=== PATIENT | male | born 1955 | race Caucasian/White ===

== ENCOUNTER → 2017-05-15 | Emergency (ER) | payer BC, OTHER ==
[~2017-05-15] VITALS: Ht 185.4 cm; Wt 77.1 kg
[~2017-05-15] MED LIST: CYCLOBENZAPRINE10 MG PO; METHYLPREDNISOLO4 M1 PO; VENTOLIN HFA18 GM INH; ZITHROMAX250 MG PO
--- NOTE | 2017-05-15 14:03 | EKG ---
[facility] [address] [facility] [place] [address] Signed Sinus rhythm with premature atrial complexes Left axis deviation Abnormal ECG No previous ECGs available Confirmed by MONSERRAT TRISTAN MD ([id number]) on 05/15/2017 2:03:16 PM Electronically Signed By: MONSERRAT TRISTAN MD 05/15/17 1403 PATIENT NAME: ASHA JOHNS Electrocardiogram DATE OF : 57 PHYSICIAN: MONSERRAT TRISTAN MD REPORT #: [id number] REPORT IS CONFIDENTIAL AND NOT TO BE RELEASED WITHOUT AUTHORIZATION
== END | disposition home or self-care (01) ==
LOC: ED 09:07
DX: J40 Bronchitis, not specified as acute or chronic (principal); Z87.891 Personal history of nicotine dependence
CPT/HCPCS: 71020; 80048; 84484; 85025; 93005; 93010; 94640; 96374; 99284; J2930

== ENCOUNTER 2017-11-02 21:59 | Emergency (ER) | payer BC, OTHER ==
[~2017-11-02] VITALS: Ht 185.4 cm; Wt 63.5 kg
[2017-11-02] MEDS ORDERED: OXYCODONE HCL5 MG PO (22:36)
[2017-11-02] MEDS ORDERED: ALPRAZOLAM0.25 MG PO (22:37)
[2017-11-02] MEDS ORDERED: LISINOPRIL5 MG PO (22:38)
[2017-11-02] MEDS ORDERED: LEVOTHYROXINE100 MCG PO (22:39)
[2017-11-02] MEDS ORDERED: GABAPENTIN300 MG PO (22:39)
[2017-11-02] MEDS ORDERED: IPRAT-ALBUT 0.5-3 ML INH (22:40)
[2017-11-02] MEDS ORDERED: PAROXETINE HCL10 MG PO (22:59)
--- NOTE | 2017-11-03 15:50 | EKG ---
[facility] [address] [facility] [place] [address] Signed Sinus tachycardia Biatrial enlargement Left axis deviation Anteroseptal infarct , age undetermined Abnormal ECG When compared with ECG of 15-MAY-2017 09:35, premature atrial complexes are no longer present Anteroseptal infarct is now present Inverted T waves have replaced nonspecific T wave abnormality in Lateral leads Confirmed by MONSERRAT TRISTAN MD ([id number]) on 11/03/2017 3:50:03 PM Electronically Signed By: MONSERRAT TRISTAN MD 11/03/17 1550 PATIENT NAME: ASHA JOHNS Electrocardiogram DATE OF : 57 PHYSICIAN: MONSERRAT TRISTAN MD REPORT #: [id number] REPORT IS CONFIDENTIAL AND NOT TO BE RELEASED WITHOUT AUTHORIZATION
== END 2017-11-03 02:56 | disposition home or self-care (01) ==
LOC: ED 21:59
DX: R41.0 Disorientation, unspecified (principal); Z87.891 Personal history of nicotine dependence; Z79.899 Other long term (current) drug therapy
CPT/HCPCS: 70450; 80053; 81001; 85025; 85610; 85730; 93005; 93010; 99284

== ENCOUNTER 2017-11-29 14:23 | Inpatient (IN) | payer BC, OTHER ==
[~2017-11-29] VITALS: Ht 185.4 cm; Wt 60.0 kg
[~2017-11-29 14:23] MED LIST changes: +ALPRAZOLAM0.25 MG PO; +GABAPENTIN300 MG PO; +IPRAT-ALBUT 0.5-3 ML INH; +LEVOTHYROXINE100 MCG PO; +LISINOPRIL5 MG PO; +OXYCODONE HCL5 MG PO; +PAROXETINE HCL10 MG PO
[2017-11-29] MEDS ORDERED: AMOX TR-K CLV1 EAC1 PO (15:01)
[2017-11-29] MEDS ORDERED: ASPIRIN EC81 MG PO (15:02)
[2017-11-29] MEDS ORDERED: DIAZEPAM5 MG PO (15:02)
[2017-11-29] MEDS ORDERED: BENZONATATE100 MG PO (15:03)
--- NOTE | 2017-11-29 19:32 | NUR ---
PATIENT ARRIVES TO ROOM 127 AT 1840 ON STRETCHER. PT IS IN A HALO CAST SINCE 2016. PT ADMITTED FOR PNEUMONIA. PT VOIDS UPON ARRIVAL AFTER AMBULATING INTO BATHROOM, AND VOID 200 ML CONCENTRATED URINE. BP UPON ARRIVAL 81/44. PT HUNGRY, AND DINNER PROVIDED WHICH WAS PUREED FIRST. HEART RATE ELEVATED AROUND 100-110s. PT IS CURRENTLY 99% ON ROOM AIR. 1 L LR BOLUS TO BE GIVEN AND STARTED. D5LR AT 125 ML/HR. PT TO RECEIVE IV VANCO. REPORT GIVEN TO NOC SHIFT.
--- NOTE | 2017-11-29 20:00 | NUR ---
RECEIVED REPORT AT 1900. FOUND PT HAD JUST ARRIVED ON FLOOR. PT HAD NO COCNERNS AT THAT TIME.
--- NOTE | 2017-11-29 22:00 | NUR ---
PT HAS BEEN RESTIN IN BED. PAIN SEEMS WELL CONTROLLED WITH AVAILABLE PRN OXY. UPPER LOBES ARE CLEAR BUT DIMINISHED, LOWER LOBES HAVE CRACKLES. O2 SATS ARE WDL OVERALL. PT DENIES SOB SO FAR. WILL CONTINUE TO MONITOR FOR FLUID OVERLOAD SINCE OUTPUT IS NOT IN BALANCE WITH INPUT AT ALL. PT OVERALL IS WEAK BUT ABLE TO STAND ON HIS OWN. PT IS AAO X4.
--- NOTE | 2017-11-29 22:30 | NUR ---
PT HAS BEEN LYING IN BED DOZING OFF AND ON, COOPERATIVE. STARTING TO GET SOMEWHAT RESTLESS, STILL CONFUSED STATES HE IS LOOKING FOR HIS GUN THAT WAS STOLEN OUT OF HIS TRUCK, TREMORS ARE MUCH LESS SEVERE THAN THEY HAD BEEN LAST NIGHT. GOT PT UP TO ASSESS HIS ABILITY TO STAND, PT WEAK AND SLIGHTLY SHAKY BUT ABLE TO STAND USING WALKER AND STAND BY ASSIST, OUT TO AMBULATE IN STALEY OF CCU X2 WITH ASSIST OF TWO RN'S. BACK TO ROOM TO SIT UP IN CHAIR WITH CHAIR ALARM ON, DRINKING JUICE AND IN VIEW OF NURSES STATION.
--- NOTE | 2017-11-30 02:08 | NUR ---
PT WAS SLEEPING, DESAT TO 81%, INFORMED PT THAT IT WOULD HELP IF HE SLEPT SITTING UP, PT NOW ON 2L O2 NC. PT IS RESTING AGAIN.
--- NOTE | 2017-11-30 03:04 | NUR ---
MD TRISTAN WAS CALLED AT 0245 DUE TO LOW URINE OUTPUT. I RECEIVED INSTRUCTIONS TO TAKE V/S AT 0300, AND IF SBP WAS <90 AND MAP <65 TO GIVE A 500ML LR BOLUS. V/S AT 0300 WERE SBP 92, MAP 66, HR 92. THEREFORE NO LR 500ML BOLUS WAS GIVEN. WILL CONTINUE TO MONITOR.
--- NOTE | 2017-11-30 04:15 | NUR ---
PT IS SLEEPING.
--- NOTE | 2017-11-30 05:52 | NUR ---
PT HAS BEEN SOMEWHAT HYPOTENSIVE ALL SHIFT. URINE OUTPUT HAS BEEN MARGINAL SO FAR. AT START OF SHIFT PT HR WAS 100-110, AT THIS TIME HR IS IN THE 90'S. MD TRISTAN WAS CALLED AT 0245 DUE TO LOW URINE OUTPUT BUT V/S DID NOT MEET GIVEN PARAMATER OF BOLUS ORDER AT THAT TIME (PLEASE VIEW NOT FROM 0300). AT START OF SHIFT PT HAD SOME CRACKLES IN THE BASES BILATERALLY. AT THIS TIME ALL LOBES ARE CLEAR BUT DIMINISHED. PT IS ALERT AND ORIENTED X4, NO PERIPHERAL EDEMA NOTED, FOAM DRESSING APPLIED TO COCCYX DUE TO BLANCHABLE REDDNESS. SPUTUM CULTURE SENT OFF. WHILE SLEEPING, PT HAS BEEN ON 2L O2 NC. WILL CONTINUE TO MONITOR URINE OUTPUT AND V/S TIL END OF SHIFT.
--- NOTE | 2017-11-30 07:30 | NUR ---
REPORT RECIEVED AT BEDSIDE. PATIENT IS RESTFUL. HOB ELEVATED.
--- NOTE | 2017-11-30 08:15 | NUR ---
OXYCODONE 10 MG PO GIVEN FOR PAIN. RATES PAIN 8/10 AT HALO PIN SITES.
--- NOTE | 2017-11-30 08:18 | NUR ---
Vancomycin trough ordered for 11/21/17 at 0730
--- NOTE | 2017-11-30 09:00 | NUR ---
TOOK BREAKFAST FAIR. COUGH IS MORE FREQUENT WHEN EATING. DR. TRISTAN HERE TO SEE PATIENT. ORDEREDS RECIEVED. IVF TO 75 ML/HR. WILL OBTAIN SPUTUM.
--- NOTE | 2017-11-30 09:30 | NUR ---
DR. GUSTAFSON AWARE OF MANUAL AND NBP IN BOTH ARMS. R ARM MANAUL-84/53, RARM NBP-83/56, L ARM MANUAL 82/52, LARM NBP-83/57. LR 500 ML ORDERED. IVF BACK TO 125 ML/HR.
--- NOTE | 2017-11-30 10:00 | NUR ---
STOOD AT BEDSIDE TO VOID 300 ML OF CLEAR YELLOW URINE. DENIES DIZZINESS WITH STANDING.
--- NOTE | 2017-11-30 10:11 | NUR ---
LR BOLUS 500 ML/HR HUNG PER ORDERS.
--- NOTE | 2017-11-30 13:45 | NUR ---
DR. TRISTAN OF HYPOTENSION, AND U/O. NO FUTHER ORDEDERS RECIEVED
--- NOTE | 2017-11-30 14:15 | NUR ---
PHYS THERAPY HERE TO WORK WITH PATIENT. AMBULATED IN HALLWAY. TOLERATED WELL. C/O PAIN IN NECK.
--- NOTE | 2017-11-30 14:30 | NUR ---
OXYCODONE 10 MG PO GIVEN FOR NECK PAIN. HALO PIN SITES CLEANSED WITH QTIP AND NS. NO REDNESS OR SIGNS OF INFECTION NOTED AT SITES. HAS LOOSE OCC PRODUCTIVE COUGH. HAS BEEN TALKATIVE AND IN GOOD SPIRITS.
--- NOTE | 2017-11-30 16:30 | NUR ---
UP TO BR TO VOID AND HAVE BM. I STABLE ON FEET.
--- NOTE | 2017-11-30 17:00 | NUR ---
VISITING WITH DAUGHTER. PATIENT IS W/O C/O.
[2017-11-30] MEDS ORDERED: VENTOLIN HFA18 GM INH (17:10)
--- NOTE | 2017-11-30 17:11 | NUR ---
Medications reconciled with interview patient and daughter Jo
--- NOTE | 2017-11-30 18:40 | NUR ---
TOOK DINNER WELL. OXYCODONE 10 MG PO GIVEN.
--- NOTE | 2017-11-30 19:30 | NUR ---
REPORT TO NEXT SHIFT.
--- NOTE | 2017-11-30 20:20 | NUR ---
SHIFT REPORT RECEIVED FROM SHERRIE LOGAN. ASSESSMENT COMPLETED. PT IS ALERT/ORIENTED, REPORTS 7/10 PAIN IN NECK AND AT HALO PIN SITES, STATES THAT PAIN IS SOMEWHAT IMPROVED SINCE LAST DOSE OF OXYCODONE. PIN SITES TO HALO APPEAR CLEAN/DRY, NO REDNESS NOTED. LUNGS COARSE, EXPIRATORY WHEEZE NOTED, RA. HR REGULAR. BOWEL TONES ACTIVE, DENIES NAUSEA. IV PATENT, VANCO INFUSION STARTED. PT DENIES REQUESTS AT THIS TIME, CALL LIGHT IS WITHIN REACH. WILL CONTINUE TO MONITOR.
--- NOTE | 2017-11-30 22:58 | NUR ---
IN TO START ZOSYN INFUSION, PT SLEEPING. NO APPARENT DISTRESS. RESPIRATIONS EVEN AND UNLABORED, RR:22, SPO2 91% ON RA. WILL CONTINUE TO MONITOR.
--- NOTE | 2017-12-01 00:41 | NUR ---
PT UP TO BATHROOM WITH SBA, VOIDED AND THEN RETURNED TO BED. 2L O2 PLACED ON PT, HE WAS DESATURATING INTO 80'S WHILE SLEEPING. ASSESSMENT COMPLETED. LUNGS SOUND CLEARER, DIM IN BASES. NO OTHER CHANGES FROM PREVIOUS ASSESSMENT. PT DENIES NEEDS, WILL CONTINUE TO MONITOR.
--- NOTE | 2017-12-01 02:48 | NUR ---
CHECKED IN ON PT WHO HAD JUST FINISHED USING URINAL, VOIDED 425ML. PT REPORTS 8/10 PAIN IN NECK AND AT PIN SITES. 10MG PO OXYCODONE ADMINISTERED. WARM BLANKETS PROVIDED AND LIGHTS DIMMED PER REQUEST. PT DENIES FURTHER NEEDS AT THIS TIME.
--- NOTE | 2017-12-01 04:38 | NUR ---
PT SLEEPING, NO APPARENT DISTRESS. RESPIATIONS EVEN AND UNLABORED, RR:19. INCREASED O2 TO 3L, SPO2:92%. HR: 92. WILL ALLOW FOR REST AND CONTINUE TO MONITOR.
--- NOTE | 2017-12-01 06:10 | NUR ---
PT UP TO BATHROOM WITH SBA, VOIDED 500ML AND THEN RETURNED TO BED. PT DENIES NEEDS AT THIS TIME, STATES THAT HE FEELS COMFORTABLE. CALL LIGHT WITHIN REACH. LAB NOW IN ROOM TO DRAW BLOOD.
--- NOTE | 2017-12-01 08:14 | NUR ---
Patient's vancomycin trough this morning was 13.6 and it was drawn over an hour early, therefore, the true trough is even lower. Change dosing from 1250mg q 12 hrs to 1000mg(15mg/kg) q 8 hrs
--- NOTE | 2017-12-01 08:29 | NUR ---
PATIENT HELPED UP TO CHAIR FOR BREAKFAST. PT ALERT, ORIENTED, AND PLEASANT. PT RATING PAIN 8/10 CURRENTLY. PT IS A STANDBY ASSIST AT THIS TIME. PT VOIDS 325 CLEAR YELLOW URINE. CONTINUE TO MONITOR.
--- NOTE | 2017-12-01 09:13 | NUR ---
DR. TRISTAN IN TO SEE PATIENT AT THIS TIME. PT REMAINS SITTING IN CHAIR.
--- NOTE | 2017-12-01 09:21 | NUR ---
PLAN IS FOR PATIENT TO TRANSFER TO MEDICAL FLOOR TODAY. PT IVF TURNED DOWN TO 75 ML/HR. PT TOLERATED ALL OF HIS BREAKFAST, AND ENCOURAGED TO DRINK MORE ENSURE THROUGHOUT THE DAY. HR WHILE UP IN CHAIR IS IN THE 110s. LAST BP 89/55 (62). PT TAKEN OFF HEART MONITOR AT THIS TIME. NEW IV TO BE STARTED. VANCO NEEDING TO BE INFUSED.
--- NOTE | 2017-12-01 13:50 | NUR ---
REPORT GIVEN TO SHERRIE PONCE. PT TO WALK OVER TO ROOM 116.
--- NOTE | 2017-12-01 14:25 | NUR ---
PT GIVEN FRESH ICE TO GO WITH HIS GATORADE. VS TAKEN AND DOCUMENTED. PT HAS NO OTHER NEEDS AT THIS TIME. PT INFORMED TO CALL IF HE NEEDS ANYTHING. CALL LIGHT IS IN REACH.
--- NOTE | 2017-12-01 14:41 | NUR ---
VERBAL REPORT FROM [facility]. PATIENT TO FLOOR, ORIENTED TO ROOM. VS STABLE. PATIENT ADMITTED FOR SEPSIS. LVA. PATIENT STATES " I AM ALWAYS A 8 OR 9 BUT IF IF I SAY 10 THEN I AM REALLY IN PAIN". PATIENT SITTING UP IN RECLINER, LAUGHING AND WATCHING TELEVISION. PRODUCTIVE COUGH, FULL BODY ASSSESMENT DONE. CALL LIGHT WITHIN REACH.
--- NOTE | 2017-12-01 16:53 | NUR ---
asumed care, pt up in alert and oriented with call light. 2nd iv abx started in 2nd site on 2nd pump. po pain meds provided.
--- NOTE | 2017-12-01 18:12 | NUR ---
trsf from [facility] today. 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 chest congestion, with pneumonia. IV abx x2, up in bedside chair - medicated for pain at surgery sites with oxy po per order.
--- NOTE | 2017-12-01 18:15 | NUR ---
PT IS IN THE CHAIR WORKING ON HIS DINNER, HE NEEDED NO OTHER ASSISTANCE AT THE TIME
--- NOTE | 2017-12-01 19:40 | NUR ---
BEDSIDE REPORT FROM TELLO. PATIENT RESTING IN THE CHAIR. DENIES PAIN. HALO BRACE IN PLACE. IV SITES PATENT AND FLUID AND ABX ARE INFUSING. NO APPARENT DISTRESS NOTED. CALL LIGHT IN REACH.
--- NOTE | 2017-12-01 20:05 | NUR ---
PATIENT C/O 05/16 HEADACHE, DENIES NAUSEA. PATIENT WAS MEDICATED WITH OXY FOR PAIN. [facility] CALL LIGHT IN REACH. WILL CONTINUE TO MONITOR.
--- NOTE | 2017-12-01 21:10 | NUR ---
IN TO ROOM TO ASSESS PATIENT. PATIENT REPORTS SOME RELIEF OF HIS HEADACHE. HALO BRACE IN PLACE. PATIENT REPORTS CONGESTIVE/PRODUCTIVE COUGH. LUNGS COARSE AND DIM. POSITIVE BOWEL TONE. IV SITE PATENT, ABX AND FLUID INFUSING WELL.
--- NOTE | 2017-12-02 00:08 | NUR ---
IN TO ROOM TO CHECK ON PATIENT. PATIENT WAS UP AT BEDSIDE, IV ON THE RIGHT WRIST WAS PULLED OUT,PATIENT STATED THAT HE FORGOT THAT HE WAS CONNECTED TO THE IV POLL. PATIENT WAS CLEANED AND NEW IV ESTABLISHED ON THE LEFT WRIST. PATIENT WAS EDUCATED ABOUT THE IMPORTANCE OF CALLING FOR HELP BEFORE GETTING OUT OF BED. PATIENT VERBALIZED UNDERSTANDING.
--- NOTE | 2017-12-02 01:12 | NUR ---
IN TO ROOM TO CHECK ON PATIENT. PATIENT APPEARS TO BE SLEEPING. RR EVEN/UNLABORED. NO APPARENT DISTRESS NOTED. CALL LIGHT IN REACH. WILL CONTINUE TO MONITOR.
--- NOTE | 2017-12-02 03:00 | NUR ---
PATIENT CALLED AND REQUESTED PAIN MEDS FOR 9/10 NECK/HEADACHE PAIN. PATIENT WAS MEDICATED. WARM BLANKET PROVIDED. CALL LIGHT IN REACH. NO OTHER REQUEST. IV FLUSHED AND S/L. WILL CONTINUE TO MONITOR
--- NOTE | 2017-12-02 05:50 | NUR ---
PATIENT HAD DONE WELL FOR THIS SHIFT. PAIN CONTROL WITH PO OXY. HALO BRACE IN PLACE AND WNL. IV SITE PATENT. SKIN INTACT. LUNGS COARSE THROUGHOUT BUT IMPROVED AFTER NEB TX. PATIENT REPORTED PRODUCTIVE COUGH.ENCOURGE DEEP BREATHING AND I/S.
--- NOTE | 2017-12-02 06:10 | NUR ---
PATIENT AWAKE REPORTED 8/10 NECK PAIN. PATIENT WAS MEDICATED. MORNING MED ADMINISTERED. ABX INFUSING. NO APPARENT DISTRESS NOTED. CALL LIGHT IN REACH.
--- NOTE | 2017-12-02 07:34 | NUR ---
recieved report from senior research fellow rn. pt a/o in bed, reports pain 05/16. fluids infusing. rr wnl. call light within reach. no other needs at this time.
--- NOTE | 2017-12-02 07:46 | NUR ---
PT IS SITTING UP IN BED WATCHING TV. ORDER BREAKFAST FOR THE PT, RN INFORMED OF PT ORDER. PT HAS NO NEEDS AT THIS TIME. INFORMED PT TO CALL IF HE THINKS OF ANYTHING. CALL LIGHT IS IN REACH.
--- NOTE | 2017-12-02 08:50 | NUR ---
MORNING MEDS PASSED. ASSESSMENT COMPLETE. LUNGS SOUND COARSE. HEART SOUNDS DISTANT. PT IS A/O X3. RR WNL. PAIN 8/10 IN HEAD. LEFT UPPER ARM IV INFILTRATED. RESTARTED IN LEFT FOREARM. PT TOLLERATED WELL. VANCO INFUSING AT A SLOWER RATE. CALL LIGHT WITHIN REACH. NO OTHER NEEDS AT THIS TIME.
--- NOTE | 2017-12-02 10:21 | NUR ---
PAIN 8/10 IN HEAD AND NECK. 10MG OXYCODONE GIVEN. NO OTHER NEEDS AT THIS TIME
--- NOTE | 2017-12-02 10:44 | NUR ---
PT CARE, VS, AND I&O'S WERE DONE BY STUDENT NURSE, YAW. PT STATES HE HAS NO NEEDS AT THIS TIME. PT WAS GIVEN FRESH ICE FOR HIS GATORADE. PT IS AWARE TO CALL IF HE NEEDS OR THINKS OF ANYTHING. CALL LIGHT IS IN REACH.
--- NOTE | 2017-12-02 14:19 | NUR ---
pt in bed watching tv. reports pain 05/16. medication given. rr wnl. call light within reach. no other needs at this time.
--- NOTE | 2017-12-02 14:36 | NUR ---
PT'S VS AND I&O'S TAKEN AND DOCUMENTED. PT IS NOW VISITING WITH NURSING STAFF FOR A CARE CONFRENCE. PT IS AWARE TO CALL IF HE NEEDS ANYTHING. CALL LIGHT IS IN REACH.
--- NOTE | 2017-12-02 15:07 | NUR ---
PT UP TO AMBULATE. EDUCATED ON IS USE. DAUGHTER AT BEDSIDE. CALL LIGHT WITHIN REACH. NO OTHER NEEDS AT THIS TIME
--- NOTE | 2017-12-02 18:13 | NUR ---
PT IS SITTING UP ON THE EDGE OF THE BED. VS AND I&O'S TAKEN AND DOCUMENTED. PT STATES HE HAS NO NEEDS AT THIS TIME. INFORMED PT TO CALL IF HE THINKS OF ANYTHING HE NEEDS. CALL LIGHT IS IN REACH.
--- NOTE | 2017-12-02 18:41 | NUR ---
PT HAD A GOOD DAY. DAUGHTER VISITED. CHRONIC PAIN 05/16 IN HEAD AND NECK. [facility] ON 12/06/17 FOR HALO REMOVAL. LUNGS HAVE CRACKLES IN THE BASE. KEEP HOB ELEVATED 30 DEGREE'S. DIET IS GROUND AND HONEY HTICK DRINKS. ON VANCO AND ZOSYN. SBA.
--- NOTE | 2017-12-02 20:51 | NUR ---
MEDICATED WITH OXYCODONE 10MG PO C/O NECK/PIN INSERTION SITE AREA, COOP WITH ASSESSMENT
--- NOTE | 2017-12-02 23:54 | NUR ---
watching tv, halo over head/neck and chest brace, in place, c/o pain 8/10 at pin insertion site, medicated with Oxycodone 10mg po. Sozyn and vancomycin abx infusing w/o problems. no c/o adverse reaction to abx. Independent going to brp, voiding qs
--- NOTE | 2017-12-03 01:54 | NUR ---
RESTING, HALO INTACT, NO S/SX OF DISTRESS AT THIS TIME.
--- NOTE | 2017-12-03 05:16 | NUR ---
Pt currently awake, watching tb. medicated wtih oxycodone 10mg po po c/o halo pin insertion site and h/a and neck pain q3h, good pain relief stated. Halo insertion pin site intact, dry, no drainage. moist non productive cough present No c/o afverse reaction to iv abx.. 2 sl intact and patent. Pt gets up to brp independently and sometimes with one person assist. Coop with assessments and follows instructions . Pt waiting to go home today or withing a few days. states he has an appointment at [facility] this coming Saturday.
--- NOTE | 2017-12-03 08:49 | NUR ---
PT A/O IN BED WATCHING TV. REPORTS NECK AND HEAD PAIN OF 8/10. 10MG OXYCODONE GIVEN. PIN SITES SHOW NO SIGNS OF INFECTION. LUNGS WHEEZY THROUOUGH AFTER COUGH. BOWEL TONES HYERACTIVE. HEART SOUNDS REGULAR. RIGHT HAND QUANG DC'D. CMS INTACT. CALL LIGHT WITHIN REACH. REPORTS NO NEEDS AT THIS TIME.
--- NOTE | 2017-12-03 10:00 | NUR ---
CARE CONFERENCE ATTENDEES: PATIENT STAFF: DR SINGH, [employer]NA[employer], ADIN MEREDITH, [facility], ALLEN BALDERAS. DR SINGH TALKED ABOUT HOW THE PT IS DOING, HIM GETTING HIS HALO REMOVED ON SATURDAY AND PROBABLE DC TOMORROW. PT IS VERY HAPPY ABOUT BEING DC AND BEING ABLE TO GO HOME, DENIED QUESTIONS, STATES HE WOULD LIKE SOMEONE TO COME TALK WITH HIS DAUGHTER AFTER HER APPT AT 1300 TODAY. ASSURED HIM WE WOULD.
--- NOTE | 2017-12-03 11:38 | NUR ---
PT IN BED WATCHING TV. SL LEFT WRIST. REPORTS PAIN 8/10. NO OTHER NEEDS AT THIS TIME.
--- NOTE | 2017-12-03 14:00 | NUR ---
AQUATIC PHYSIOTHERAPIST REPORTED B/P OF 90/58. RECHECKED MANUALLY. B/P WAS STILL 90/58. NOTIFIED DR SINGH. NO NEW ORDERS. WILL CONTINUE TO MONITOR
--- NOTE | 2017-12-03 18:06 | NUR ---
PATIENT SITTING UP IN BED WATCHING TV. CALL BUTTON IN REACH. PATIENT STATES HE'S IN 8 OUT OF 10 PAIN RN NOTIFIED. NO OTHER NEEDS AT THIS TIME.
--- NOTE | 2017-12-03 18:38 | NUR ---
DISCHARGE TOMORROW. INDEPENDENT IN ROOM. THIN LIQUIDS OK. STILL GROUND DINNERS. 10MG OXY Q3. 05/16 PAIN CONSTANT. ZOSYN AND VANCO DC'D. AUGMENTIN PO STARTED. SPUTUM AND BLOOD CULTURES BEBO. HALO IN PLACE. LYNNE 12/06/17 TO BE REMOVED AT [facility]. TONG [place]. PIN SITES INTACT. AAOX3.
--- NOTE | 2017-12-03 23:03 | NUR ---
PATIENT RESTING COMFORTABLY IN BED, BREATHING IS EVEN AND UNLABORED. FLACC SCORE OF 0. CALL LIGHT WITHIN REACH.
--- NOTE | 2017-12-04 00:49 | NUR ---
PATIENT REPORTS 9/10 PAIN IN PIN SITES FOR HALO. PRN OXYCODONE GIVEN. DENIES FURTHER NEEDS. ASSESSMENT DONE. CALL LIGHT WITHIN REACH.
--- NOTE | 2017-12-04 03:20 | NUR ---
PATIENT RESTING COMFORTABLY IN BED, BREATHING IS EVEN AND UNLABORED. FLACC SCORE OF 0. CALL LIGHT WITHIN REACH.
--- NOTE | 2017-12-04 05:02 | NUR ---
PATIENT'S NIGHT WAS UNEVENTFUL. HE HAS BEEN RESTING IN BED THROUGHOUT SHIFT. VSS, URINE OUTPUT QS. PATIENT HAS CHRONIC PAIN, RECEIVES PRN OXYCODONE Q3H. ALERT AND ORIENTED, LUNGS ARE CLEAR, ON ROOM AIR. PATIENT HAS HALO APPARATUS IN PLACE, PIN SITES ARE CDI. PATIENT IS SBA, IV IS SALINE LOCKED. NO ACUTE CHANGES FROM BEGINNING OF SHIFT.
--- NOTE | 2017-12-04 07:53 | NUR ---
BEDSIDE REPORT RECEIVED FROM PHAM. PATIENT AWAKE IN BED. HALO BRACE IN PLACE AND SITES WNL. IV SITE PATENT. BREAKFAST ORDERED. CALL LIGHT IN REACH.
[2017-12-04] MEDS ORDERED: AMOX TR-K CLV1 EAC1 PO (09:03)
--- NOTE | 2017-12-04 09:16 | NUR ---
PATIENT SITTING UP IN BED WITH PHONE. PATIENT RATES HIS PAIN 8 OUT OF 10 A WOULD LIKE PAIN MEDICATION. STUDENT NURSE NOTIFIED PATIENTS RN. PATIENT SET UP WITH WASH CLOTH AND ORAL CARE. PATIENT REFUSED SHOWER DUE TO BEING DISCHARGED TO HOME TODAY. NO OTHER NEEDS AT THIS TIME. CALL BUTTON IN REACH.
--- NOTE | 2017-12-04 09:40 | NUR ---
PATIENT RESTING IN BED. REPORTED PAIN IN THE HEAD. PATIENT WAS MEDICATED BY STUDENT NURSE. LUNGS COARSE, STILL REPORTED PRODUCTIVE COUGH. ABD SOFT ACTIVE BOWEL TONES. PERIPHERAL PULSE PALPABLE. HALO BRACE IN PLACE WNL. NO DEVIATION. PINS SITES WNL. CALL LIGHT IN REACH. PATIENT ENCOURAGE TO USE IS.
== END 2017-12-04 11:28 | disposition home or self-care (01) | DRG 871 ==
LOC: ED 14:23 → CCU 17:12 → MS 12-01 14:00
PROVIDERS: ADMIT Internal Medicine
DX: A41.89 Other specified sepsis (principal); J69.0 Pneumonitis due to inhalation of food and vomit; I47.1 Supraventricular tachycardia; I10 Essential (primary) hypertension; J44.9 Chronic obstructive pulmonary disease, unspecified; D38.1 Neoplasm of uncertain behavior of trachea, bronchus and lung; E03.9 Hypothyroidism, unspecified; Z85.72 Personal history of non-Hodgkin lymphomas; Z98.1 Arthrodesis status; G47.34 Idiopathic sleep related nonobstructive alveolar hypoventilation
CPT/HCPCS: 36415; 71046; 71260; 80053; 80069; 80202; 83605; 83735; 84100; 84484; 85025; 87040; 87070; 87147; 87205; 92610; 94640; 94760; 96374; 97110; 97116; 97161; 99285; J0692; J1650; J2543; J3370; J7030; J7050; J7120; Q9967